=== PATIENT | female | born 1940 | race Caucasian/White ===

== ENCOUNTER 2018-09-25 21:35 | Emergency (ER) | payer MEDICARE, OTHER ==
[~2018-09-25] VITALS: Ht 162.6 cm; Wt 98.0 kg
[~2018-09-25 21:35] MED LIST: ALEVE220 MG OR; CELEBREX100 M1 PO; GLUCOTROL10 MG OR; INDERAL60 MG OR; LIPITOR80 MG OR; METFORMIN500 M1 OR
[2018-09-25] MEDS ORDERED: TRAMADOL HCL50 MG PO (21:53)
[2018-09-25] MEDS ORDERED: LISINOP/HCTZ1 TA1 PO (21:55)
[2018-09-25] MEDS ORDERED: AMLODIPINE5 MG PO (21:56)
[2018-09-25] MEDS ORDERED: JANUVIA50 MG PO (21:57)
[2018-09-25] MEDS ORDERED: WELCHOL3.75 GM PO (21:57)
[2018-09-25] MEDS ORDERED: CELECOXIB200 MG PO (21:58)
[2018-09-25] MEDS ORDERED: ROPINIROLE0.5 MG PO (21:59)
[2018-09-25] MEDS ORDERED: PRILOSEC20 MG PO (21:59)
[2018-09-25] MEDS ORDERED: CARVEDILOL25 MG PO (22:00)
[2018-09-25 22:59] LABS: HEMATOCRIT 38.6 % (37.0-47.0); HEMOGLOBIN 12.5 g/dl (12.0-16.0); IMMATURE GRANULOCYTES 0.7 % (0.0-5.0); MEAN CELL VOLUME 87.5 fL CALC (80.0-100.0); MEAN CORPUSCULAR HGB 28.3 pG CALC (26.0-32.0); MEAN CORPUSCULAR HGB CONC 32.4 g/L CALC (32.0-36.0); NEUT# 14.62 thou/uL (2.00-7.15); RED BLOOD COUNT 4.41 mill/uL (4.20-5.60); RED CELL DISTRI WIDTH 13.8 % (11.5-15.5)
[2018-09-25 23:11] LABS: ALBUMIN 3.9 g/dL (3.2-5.0); ANION GAP 16 (6-22 (CALC)); BILIRUBIN, TOTAL 0.3 mg/dL (0.0-1.4); BUN 23 mg/dL (8-23); BUN/CREATININE RATIO 24 (12-20 (CALC)); CARBON DIOXIDE 25 mmol/l (22-30); CHLORIDE 93 mmol/l (95-108); GFR 54 ML/MIN (>=60 (CALC)); GFR FOR AFR.AMER. > 60 ML/MIN (>=60 (CALC)); POTASSIUM 4.4 mmol/l (3.5-5.1); SGOT/AST 20 u/l (9-36); SODIUM 129 mmol/l (137-146); TOTAL PROTEIN 7.3 g/dL (6.3-8.2)
[2018-09-25 23:27] LABS: ALKALINE PHOSPHATASE 121 u/l (38-126)
[2018-09-26 00:17] LABS: URINE BLOOD DIPSTICK NEGATIVE (NEGATIVE); URINE COLOR YELLOW; URINE GLUCOSE - DIPSTICK NEGATIVE (NEGATIVE); URINE KETONE TRACE mg/dL (NEGATIVE); URINE LEUK ESTERASE NEGATIVE (Negative); URINE NITRITE - DIPSTICK NEGATIVE (Negative); URINE PROTEIN - DIPSTICK NEGATIVE (NEG-TRACE); URINE SPECIFIC GRAVITY >=1.030; URINE UROBILINOGEN - DIPSTICK 0.2 E.U./dL (0.2)
[2018-09-26 00:25] LABS: URINE CLARITY CLEAR
[2018-09-26 00:27] LABS: URINE BILIRUBIN - DIPSTICK NEGATIVE (NEGATIVE)
[2018-09-26 00:40] LABS: PROTHROMBIN TIME 10.5 SECONDS (9.0-12.5)
[2018-09-26 01:44] LABS: INFLUENZA A NONE DETECTED (NONE DETECT); INFLUENZA B NONE DETECTED (NONE DETECT)
[2018-09-26 03:01] VITALS: BP 105/58
== END 2018-09-26 02:59 | disposition short-term general hospital (02) ==
LOC: ED 21:35 → ED-I 09-26 00:23 → ED 09-26 02:59
PROVIDERS: Emergency Medicine
DX: M48.55XA Collapsed vertebra, not elsewhere classified, thoracolumbar region, initial encounter for fracture (principal); D72.829 Elevated white blood cell count, unspecified